=== PATIENT | male | born 1990 | race American Indian/Alaskan Native ===

== ENCOUNTER 2022-01-03 10:27 | Emergency (ER) | payer SELFPAY ==
[2022-01-03] MEDS ORDERED: diphenhydrAMINE 25 MG CAP PO ONE ×2 (11:18→15:00)
[2022-01-03] MEDS ORDERED: METOCLOPRAMIDE 10 MG TAB PO ONE ×2 (11:18→15:00)
[2022-01-03] MEDS ORDERED: dexAMETHasone 4 MG/ML VIAL IM ONE ×2 (11:18→15:00)
[2022-01-03] MEDS ORDERED: KETOROLAC 10 MG TAB PO ONE ×2 (11:20→15:00)
--- NOTE | 2022-01-03 11:22 | Emergency Department Report ---
ED Headache HPI - General Chief Complaint: Headache Stated Complaint: BODY PAIN/HEADACHE/FEVER Time Seen by Provider: 01/03/22 11:20 - History of Present Illness Initial Comments: 31-year-old black male with no past medical history presents to the emergency department for evaluation of 3-day history of headache. He states that he started having a headache on Monday, he took Goody powder and Excedrin, headache was relieved, but then he developed a headache. On Monday morning he has not taken any medication since then. He states that headache at its worst is 8 out of 10 but currently is 6 on a 10 point scale he denies nausea, vomiting, vision changes, dizziness, and fever. Timing/Duration: other (3 days) Head Injury Location: frontal Associated Symptoms: denies: confusion, fatigue, facial pain, fever/chills, flushing, loss of consciousness, nausea/vomiting, nasal congestion, nasal drainage, numbness in legs/feet, rash, seizures, sinus infection, stiff neck, vision changes, weakness Allergies/Adverse Reactions: Allergies No Known Allergies Allergy (Verified 01/03/22 11:19) Home Medications: Ambulatory Orders Butalb/Acetaminophen/Caffeine [Fioricet 50-300-40 mg CAP] 1 cap PO Q6HR PRN #12 cap 01/03/22 ED Review of Systems ROS: Stated complaint: BODY PAIN/HEADACHE/FEVER Other details as noted in HPI Comment: All other systems reviewed and negative Constitutional: weakness. denies: chills, fever, malaise Eyes: denies: vision change ENT: denies: ear pain, congestion Respiratory: denies: shortness of breath Cardiovascular: denies: chest pain, palpitations Gastrointestinal: denies: abdominal pain, nausea, vomiting Genitourinary: denies: urgency, dysuria Musculoskeletal: denies: back pain Skin: denies: rash, lesions Neurological: headache. denies: weakness, numbness, paresthesias, confusion, abnormal gait, vertigo ED Past Medical Hx - Past Medical History Previous Medical History?: No - Surgical History Past Surgical History?: No - Social History Smoking Status: Never Smoker - Medications Home Medications: Home Medications Medication Instructions Recorded Confirmed Last Taken Type Butalb/Acetaminophen/Caffeine 1 cap PO Q6HR PRN #12 cap 01/03/22 Unknown Rx [Fioricet 50-300-40 mg CAP] ED Physical Exam - General Limitations: No Limitations General appearance: alert, in no apparent distress - Head Head exam: Present: atraumatic, normocephalic - Eye Eye exam: Present: normal appearance. Absent: conjunctival injection, periorbital swelling - ENT ENT exam: Present: normal orophraynx (erythema to posterior oropharnyx. ). Absent: normal exam (bilateral nasal mucosal edema) - Neck Neck exam: Present: normal inspection, full ROM. Absent: tenderness, meningismus, lymphadenopathy - Respiratory Respiratory exam: Present: normal lung sounds bilaterally. Absent: respiratory distress, wheezes, rhonchi, stridor, chest wall tenderness - Cardiovascular Cardiovascular Exam: Present: regular rate, normal heart sounds - GI/Abdominal GI/Abdominal exam: Present: soft, normal bowel sounds. Absent: distended, tenderness, guarding, rebound, rigid - Extremities Exam Extremities exam: Present: normal inspection, normal capillary refill - Back Exam Back exam: Present: normal inspection - Neurological Exam Neurological exam: Present: alert, oriented X3, CN II-XII intact, reflexes normal. Absent: motor sensory deficit - Psychiatric Psychiatric exam: Present: normal affect, normal mood - Skin Skin exam: Present: warm, dry, intact, normal color ED Course Vital Signs 01/03/22 01/03/22 01/03/22 11:15 11:19 16:14 Temperature 98.7 F 99.2 F Pulse Rate 79 90 Respiratory 18 16 Rate Blood Pressure 146/88 165/96 [Right] O2 Sat by Pulse 100 99 Oximetry ED Medical Decision Making - Medical Decision Making 31-year-old black male with no past medical history presents to the emergency department for evaluation of 3-day history of headache. He states that he started having a headache on Monday, he took Goody powder and Excedrin, headache was relieved, but then he developed a headache. On Monday morning he has not taken any medication since then. He states that headache at its worst is 8 out of 10 but currently is 6 on a 10 point scale he denies nausea, vomiting, vision changes, dizziness, and fever. Physical exam unremarkable. Headache resolved after medications. Patient will be discharged home with Fiorcet to use as needed. He is advised to follow up with his pcp if worsening symptoms or return to ED as needed. He verbalized understanding of and agreement with plan of care. Critical care attestation.: If time is entered above; I have spent that time in minutes in the direct care of this critically ill patient, excluding procedure time. ED Disposition Clinical Impression: Headache Qualifiers: Headache type: unspecified Headache chronicity pattern: acute headache Intractability: not intractable Qualified Code(s): R51.9 - Headache, unspecified Disposition: 01 HOME / SELF CARE / HOMELESS Is pt being admited?: No Does the pt Need Aspirin: No Condition: Stable Instructions: General Headache Without Cause, [id number] Additional Instructions: Take medications as prescribed. Follow up with primary care provider if no improvement or worsening symptoms. Return to ED as needed. Prescriptions: Butalb/Acetaminophen/Caffeine [Fioricet 50-300-40 mg CAP] 1 cap PO Q6HR PRN #12 cap PRN Reason: Headache Referrals: TIEN MATT MD [Staff Physician] - 3-5 Days Forms: Work/School Release Form(ED) Time of Disposition: 15:09
[2022-01-03 16:15] VITALS: BP 165/96
== END 2022-01-03 16:14 | disposition home or self-care (01) ==
LOC: ED 10:27
DX: R51.9 Headache, unspecified (principal); Z79.899 Other long term (current) drug therapy
CPT/HCPCS: 96372; 99282; J1100

== ENCOUNTER 2022-01-09 00:36 | Emergency (ER) | payer OTHER ==
[2022-01-09] MEDS ORDERED: IBUPROFEN 800 MG TAB PO ONE (09:23)
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
[2022-01-09 10:36] VITALS: BP 138/72
== END 2022-01-09 10:35 | disposition home or self-care (01) ==
LOC: ED 00:36
DX: S13.4XXA Sprain of ligaments of cervical spine, initial encounter (principal); S59.902A Unspecified injury of left elbow, initial encounter; S89.92XA Unspecified injury of left lower leg, initial encounter; F17.200 Nicotine dependence, unspecified, uncomplicated; F12.90 Cannabis use, unspecified, uncomplicated; Z79.899 Other long term (current) drug therapy; V87.7XXA Person injured in collision between other specified motor vehicles (traffic), initial encounter; Y93.89 Activity, other specified; Y92.488 Other paved roadways as the place of occurrence of the external cause; Y99.8 Other external cause status
CPT/HCPCS: 72040; 99284